=== PATIENT | female | born 1940 | race Caucasian/White ===

== ENCOUNTER 2018-01-27 18:34 | Emergency (ER) | payer MEDICARE ==
[~2018-01-27] VITALS: Ht 174 cm; Wt 72.0 kg
[~2018-01-27 18:34] MED LIST: AMLO10TA PO
[2018-01-27] MEDS ORDERED: INSU100V9 SQ (18:45)
[2018-01-27] MEDS ORDERED: CITA40TA22 PO (18:49)
[2018-01-27] MEDS ORDERED: LIRA0.6P2 SUBCUT (18:49)
[2018-01-27] MEDS ORDERED: MIRA50TA PO (18:49)
[2018-01-27] MEDS ORDERED: BRIM5DRO2 RIGHTEYE (18:49)
[2018-01-27] MEDS ORDERED: [UNRECOGNIZED DRUG - OTHER] PO (18:49)
[2018-01-27] MEDS ORDERED: DENO60DI IM (18:49)
[2018-01-27] MEDS ORDERED: LEVO100T PO (18:49)
[2018-01-27] MEDS ORDERED: DIPH1TAB PO (18:49)
[2018-01-27] MEDS ORDERED: COLE3.75 PO (18:49)
[2018-01-27] MEDS ORDERED: LOSA25TA96 PO (18:49)
[2018-01-27] MEDS ORDERED: ONDA4TAB9 SL (18:49)
[2018-01-27] MEDS ORDERED: ESTR0.6261 PO (18:49)
[2018-01-27] MEDS ORDERED: morphine 4 MG/ML inj SYRINge IM ONE (20:20)
[2018-01-27] MEDS ORDERED: HYDROcodone/acetaminophen 10/325mg tab PO ONE (20:20)
[2018-01-27 20:55] VITALS: BP 127/75
[2018-01-27] MEDS ORDERED: ondansetron 4mg rapidly disintigrating tab PO ONE (21:00)
[2018-01-27] MEDS ORDERED: HYDR-565 PO (21:40)
== END 2018-01-27 21:50 | disposition home or self-care (01) ==
LOC: ER 18:35
DX: S80.02XA Contusion of left knee, initial encounter (principal); I10 Essential (primary) hypertension; I25.2 Old myocardial infarction; J45.909 Unspecified asthma, uncomplicated; E11.9 Type 2 diabetes mellitus without complications; G89.29 Other chronic pain; Z98.890 Other specified postprocedural states; Z88.1 Allergy status to other antibiotic agents; Z88.8 Allergy status to other drugs, medicaments and biological substances; Z91.018 Allergy to other foods; Z79.4 Long term (current) use of insulin; Z79.899 Other long term (current) drug therapy; X37.1XXA Tornado, initial encounter; Y93.89 Activity, other specified; Y92.89 Other specified places as the place of occurrence of the external cause; Y99.8 Other external cause status
CPT/HCPCS: 73564; 96372; 99284; A6449; J2270

== ENCOUNTER 2018-04-11 13:10 | Inpatient (IN) | payer MEDICARE ==
[~2018-04-11] VITALS: Ht 172.7 cm; Wt 80.0 kg
[~2018-04-11 13:10] MED LIST changes: -AMLO10TA PO; +BRIM5DRO2 RIGHTEYE; +CITA40TA22 PO; +COLE3.75 PO; +DENO60DI IM; +DIPH1TAB PO; +ESTR0.6261 PO; +INSU100V9 SQ; +LEVO100T PO; +LIRA0.6P2 SUBCUT; +LOSA25TA96 PO; +MIRA50TA PO; +ONDA4TAB9 SL; +[UNRECOGNIZED DRUG - OTHER] PO
[2018-04-11 13:39] LABS: BASOPHILS % (AUTO) 0.1 % (0-1); EOSINOPHILS % (AUTO) 0 % (0-6); HEMATOCRIT 35.6 % (35.0-45.0); HEMOGLOBIN 12.1 g/dl (12.0-16.0); LYMPHOCYTES # (AUTO) 1.3 X10'3 (1.1-4.8); LYMPHOCYTES % (AUTO) 9.7 % (21-51); MEAN CORPUSCULAR HGB CONC 34.1 % (33.0-36.5); MEAN PLATELET VOLUME 8.2 FL (7.4-10.4); MONOCYTES # (AUTO) 0.5 X10'3 (0-0.9); NEUTROPHILS # (AUTO) 11.3 X10'3 (1.8-7.7); NEUTROPHILS % (AUTO) 86.2 % (42-75); PLATELET COUNT 316 X10'3 (140-440); RED BLOOD COUNT 4.05 X10'6 (4.20-5.60); RED CELL DISTRIBUTION WIDTH 14.6 % (11.5-14.5); WHITE BLOOD COUNT 13.1 X10'3 (4.5-11.0)
[2018-04-11 13:50] LABS: ALANINE AMINOTRANSFERASE 20 U/L (12-78); ALBUMIN/GLOBULIN RATIO 0.8 (1.1-1.5); ALKALINE PHOSPHATASE 82 IU/L (46-116); ANION GAP 12 (8-16); ASPARTATE AMINO TRANSFERASE 12 U/L (10-37); BILIRUBIN,TOTAL 0.2 MG/DL (0.1-1.0); BLOOD UREA NITROGEN 15 MG/DL (7-18); BUN/CREATININE RATIO 13.3 (6.6-38.0); CALCIUM 8.8 MG/DL (8.5-10.1); CHLORIDE 101 MMOL/L (99-107); CREATININE 1.13 MG/DL (0.40-0.90); GLUCOSE 262 MG/DL (70-104); PARTIAL THROMBOPLASTIN TIME 23 SECONDS (22-32); POTASSIUM 3.6 MMOL/L (3.5-5.1); PROTHROMBIN TIME 10.5 SECONDS (9.0-12.0); SODIUM 137 MMOL/L (135-145); TOTAL CARBON DIOXIDE 24.3 MMOL/L (24-32); TOTAL PROTEIN 6.7 G/DL (6.4-8.2); eGFR 47 ML/MIN
[2018-04-11 13:53] LABS: TROPONIN I < 0.04 NG/ML (0.0-0.05)
[2018-04-11] MEDS ORDERED: HYDROcodone/acetaminophen 5mg/325mg tablet PO ONE (14:05)
[2018-04-11] MEDS ORDERED: glucagon, human recombinant 1mg kit SUBCUT PRN (15:20)
[2018-04-11] MEDS ORDERED: MESSAGE TO PHARMACY PO ONE (15:20)
[2018-04-11] MEDS ORDERED: dextrose ORAL solution 15 GM/59 ML bottle PO PRN ×2 (15:20)
[2018-04-11] MEDS ORDERED: dextrose 50%-water 50ml dispensing syringe IV PRN ×2 (15:20)
[2018-04-11] MEDS ORDERED: ondansetron/PF 4mg/2ml inj IV PRN (15:20)
[2018-04-11] MEDS ORDERED: mag hydrox/Alum hydrox/simeth 30ml oral suspension PO PRN (15:20)
[2018-04-11] MEDS ORDERED: magnesium hydroxide 30ml (MOM) UD suspension PO PRN (15:20)
[2018-04-11] MEDS ORDERED: acetaminophen 325mg tablet PO PRN (15:20)
[2018-04-11 15:48] LABS: HEMOGLOBIN A1C 8.6 % (4.5-6.2)
[2018-04-11] MEDS ORDERED: BRIM10DR2 OP (15:52)
[2018-04-11] MEDS ORDERED: CHOL50004 PO (15:53)
[2018-04-11] MEDS: normal saline 1000ml 1,000 ML IV SCH (16:15)
[2018-04-11] MEDS: HYDROmorphone 1 mg/ml syringe IV PRN ×2 (16:15→21:05)
[2018-04-11 18:30] VITALS: BP 164/83
[2018-04-11] MEDS: insulin Lispro (HumaLOG) vial - multi-dose SQ SCH (21:51)
[2018-04-11] MEDS: insulin glargine (Lantus) pen - multi-dose SQ SCH (21:52)
[2018-04-11 22:00] VITALS: BP 129/57
[2018-04-12] MEDS: HYDROmorphone 1 mg/ml syringe IV PRN ×2 (02:51→09:17)
[2018-04-12] MEDS: normal saline 1000ml 1,000 ML IV SCH ×2 (05:34→14:40)
[2018-04-12 06:00] VITALS: BP 159/84
[2018-04-12 06:01] LABS: BASOPHILS % (AUTO) 0.4 % (0-1); EOSINOPHILS % (AUTO) 0.2 % (0-6); HEMATOCRIT 32.9 % (35.0-45.0); HEMOGLOBIN 11.5 g/dl (12.0-16.0); LYMPHOCYTES % (AUTO) 18.4 % (21-51); MEAN CORPUSCULAR HEMOGLOBIN 30.6 PG (27.0-31.0); MEAN CORPUSCULAR VOLUME 87.6 FL (78-98); MEAN PLATELET VOLUME 8.6 FL (7.4-10.4); MONOCYTES % (AUTO) 6.7 % (2-12); NEUTROPHILS % (AUTO) 74.3 % (42-75); PLATELET COUNT 257 X10'3 (140-440); RED BLOOD COUNT 3.76 X10'6 (4.20-5.60); RED CELL DISTRIBUTION WIDTH 14.7 % (11.5-14.5); WHITE BLOOD COUNT 9.2 X10'3 (4.5-11.0)
[2018-04-12 06:02] LABS: LYMPHOCYTES # (AUTO) 1.7 X10'3 (1.1-4.8); MONOCYTES # (AUTO) 0.6 X10'3 (0-0.9); NEUTROPHILS # (AUTO) 6.9 X10'3 (1.8-7.7)
[2018-04-12 06:14] LABS: ALANINE AMINOTRANSFERASE 17 U/L (12-78); ALBUMIN 2.8 G/DL (3.4-5.0); ALBUMIN/GLOBULIN RATIO 0.8 (1.1-1.5); ALKALINE PHOSPHATASE 78 IU/L (46-116); ANION GAP 11 (8-16); ASPARTATE AMINO TRANSFERASE 13 U/L (10-37); BILIRUBIN,TOTAL 0.2 MG/DL (0.1-1.0); BLOOD UREA NITROGEN 16 MG/DL (7-18); BUN/CREATININE RATIO 17.4 (6.6-38.0); CALCIUM 8.9 MG/DL (8.5-10.1); CHLORIDE 103 MMOL/L (99-107); CREATININE 0.92 MG/DL (0.40-0.90); GLUCOSE 249 MG/DL (70-104); POTASSIUM 3.9 MMOL/L (3.5-5.1); SODIUM 139 MMOL/L (135-145); TOTAL CARBON DIOXIDE 25.2 MMOL/L (24-32); TOTAL PROTEIN 6.2 G/DL (6.4-8.2); eGFR 59 ML/MIN
[2018-04-12] MEDS ORDERED: TIMOLOL RIGHTEYE SCH (08:00)
[2018-04-12] MEDS ORDERED: BRIMONIDINE TARTRATE RIGHTEYE SCH (08:00)
[2018-04-12] MEDS: insulin Lispro (HumaLOG) vial - multi-dose SQ SCH ×3 (09:16→18:57)
[2018-04-12 10:00] VITALS: BP 172/79
[2018-04-12] MEDS ORDERED: pneumococcal 23-VAL P-sac vacc 25 mcg/0.5ml vial IMVAC ONE (10:00)
[2018-04-12] MEDS ORDERED: COLESEVELAM HCL 3.75 GM PO SCH (10:30)
[2018-04-12] MEDS: timolol 0.5% ophthalmic solution 5ml bottle RIGHTEYE SCH ×2 (10:33→20:00)
[2018-04-12] MEDS: brimonidine 0.2% 5 ML ophthalmic drops RIGHTEYE SCH ×2 (10:34→20:00)
[2018-04-12] MEDS: losartan 25mg tablet PO SCH (10:55)
[2018-04-12] MEDS: levoTHYROXINE 100mcg tablet PO SCH (10:57)
[2018-04-12] MEDS: citalopram 20mg tablet PO SCH (10:58)
[2018-04-12] MEDS: HYDROcodone/acetaminophen 5mg/325mg tablet PO PRN ×2 (14:32→23:47)
[2018-04-12] MEDS ORDERED: LORazepam 2 mg/ml vial IV PRN (15:00)
[2018-04-12 18:16] VITALS: BP 157/82
[2018-04-12] MEDS ORDERED: COLESEVELAM HCL 625 MG PO SCH (19:25)
[2018-04-12] MEDS: insulin glargine (Lantus) pen - multi-dose SQ SCH (21:43)
[2018-04-12] MEDS: COLESEVELAM HCL 625 MG PO SCH (21:44)
[2018-04-12 22:00] VITALS: BP 148/68
[2018-04-13 02:00] VITALS: BP 164/87
[2018-04-13 06:23] LABS: BASOPHILS % (AUTO) 0.3 % (0-1); EOSINOPHILS # (AUTO) 0.1 X10'3 (0-0.9); EOSINOPHILS % (AUTO) 1.7 % (0-6); HEMOGLOBIN 12.4 g/dl (12.0-16.0); LYMPHOCYTES # (AUTO) 1.9 X10'3 (1.1-4.8); LYMPHOCYTES % (AUTO) 27.1 % (21-51); MEAN CORPUSCULAR HEMOGLOBIN 29.3 PG (27.0-31.0); MEAN CORPUSCULAR HGB CONC 33.4 % (33.0-36.5); MEAN CORPUSCULAR VOLUME 87.6 FL (78-98); MEAN PLATELET VOLUME 7.9 FL (7.4-10.4); MONOCYTES # (AUTO) 0.5 X10'3 (0-0.9); NEUTROPHILS # (AUTO) 4.3 X10'3 (1.8-7.7); NEUTROPHILS % (AUTO) 62.9 % (42-75); PLATELET COUNT 269 X10'3 (140-440); RED BLOOD COUNT 4.23 X10'6 (4.20-5.60); RED CELL DISTRIBUTION WIDTH 15.8 % (11.5-14.5); WHITE BLOOD COUNT 6.8 X10'3 (4.5-11.0)
[2018-04-13 06:44] LABS: ALANINE AMINOTRANSFERASE 18 U/L (12-78); ALBUMIN 2.7 G/DL (3.4-5.0); ALBUMIN/GLOBULIN RATIO 0.8 (1.1-1.5); ALKALINE PHOSPHATASE 74 IU/L (46-116); ANION GAP 10 (8-16); ASPARTATE AMINO TRANSFERASE 14 U/L (10-37); BILIRUBIN,TOTAL 0.2 MG/DL (0.1-1.0); BLOOD UREA NITROGEN 16 MG/DL (7-18); BUN/CREATININE RATIO 22.9 (6.6-38.0); CALCIUM 8.3 MG/DL (8.5-10.1); CHLORIDE 105 MMOL/L (99-107); CHOL/HDL RATIO 2.7 (0.00-4.99); CHOLESTEROL 128 MG/DL (0-200); GLUCOSE 225 MG/DL (70-104); HDL CHOLESTEROL 47 MG/DL (35-60); LDL CHOLESTEROL 33 MG/DL (50-100); POTASSIUM 3.7 MMOL/L (3.5-5.1); SODIUM 140 MMOL/L (135-145); TOTAL PROTEIN 6.1 G/DL (6.4-8.2); TRIGLYCERIDES 280 MG/DL (20-135); eGFR 81 ML/MIN
[2018-04-13] MEDS: levoTHYROXINE 100mcg tablet PO SCH (07:48)
[2018-04-13] MEDS: citalopram 20mg tablet PO SCH (07:48)
[2018-04-13] MEDS: HYDROcodone/acetaminophen 10/325mg tab PO PRN ×2 (07:49→11:50)
[2018-04-13] MEDS: losartan 25mg tablet PO SCH (07:49)
[2018-04-13] MEDS: timolol 0.5% ophthalmic solution 5ml bottle RIGHTEYE SCH (08:00)
[2018-04-13] MEDS: brimonidine 0.2% 5 ML ophthalmic drops RIGHTEYE SCH (08:00)
[2018-04-13] MEDS ORDERED: aspirin 81mg tab.chew PO SCH (08:00)
[2018-04-13 08:08] VITALS: BP 172/81
[2018-04-13] MEDS: insulin Lispro (HumaLOG) vial - multi-dose SQ SCH (08:41)
[2018-04-13] MEDS: COLESEVELAM HCL 625 MG PO SCH (08:48)
[2018-04-13 10:40] VITALS: BP 156/93
[2018-04-13] MEDS: normal saline 1000ml 1,000 ML IV SCH (11:46)
[2018-04-13] MEDS ORDERED: HYDR-3972 PO (14:35)
== END 2018-04-13 15:51 | disposition home or self-care (01) | DRG 683 ==
LOC: ER 13:10 → ED HOLD 15:16 → ORTHO 4S 17:35
PROVIDERS: ADMIT Internal Medicine; ATTEND Family Medicine
PROC: 4A10X4Z Monitoring of Central Nervous Electrical Activity, External Approach (ICD-10-PCS; principal; 2018-04-12)
PROC: 3E0234Z Introduction of Serum, Toxoid and Vaccine into Muscle, Percutaneous Approach (ICD-10-PCS; 2018-04-12)
DX: N17.9 Acute kidney failure, unspecified (principal); S22.089A Unspecified fracture of T11-T12 vertebra, initial encounter for closed fracture; S22.079A Unspecified fracture of T9-T10 vertebra, initial encounter for closed fracture; I95.1 Orthostatic hypotension; E03.9 Hypothyroidism, unspecified; E11.9 Type 2 diabetes mellitus without complications; E78.1 Pure hyperglyceridemia; E86.0 Dehydration; I10 Essential (primary) hypertension; S09.90XA Unspecified injury of head, initial encounter; I25.10 Atherosclerotic heart disease of native coronary artery without angina pectoris; F32.9 Major depressive disorder, single episode, unspecified; W18.39XA Other fall on same level, initial encounter; G89.29 Other chronic pain; R79.89 Other specified abnormal findings of blood chemistry; J45.909 Unspecified asthma, uncomplicated; N95.1 Menopausal and female climacteric states; Z23 Encounter for immunization; I25.2 Old myocardial infarction; Z95.5 Presence of coronary angioplasty implant and graft; Z88.8 Allergy status to other drugs, medicaments and biological substances; Z79.899 Other long term (current) drug therapy; Z79.4 Long term (current) use of insulin; Z87.891 Personal history of nicotine dependence; Y93.89 Activity, other specified; Y99.8 Other external cause status
CPT/HCPCS: 36415; 70450; 70544; 70547; 70551; 71045; 72125; 72128; 72131; 80053; 80061; 82948; 83036; 84484; 85025; 85610; 85730; 87070; 90732; 93005; 93306; 93880; 95816; 97116; 97161; 97760; 99285; G0378; J1170; J1815; J2060; J7030

== ENCOUNTER 2018-08-17 10:15 | Emergency (ER) | payer MEDICARE ==
[~2018-08-17] VITALS: Ht 172.7 cm; Wt 75.0 kg
[~2018-08-17 10:15] MED LIST changes: +CHOL50004 PO; -ESTR0.6261 PO; +HYDR-3972 PO
[2018-08-17] MEDS ORDERED: normal saline 1000ML IV soln IVB ONE (10:50)
--- NOTE | 2018-08-17 11:03 | NUR ---
gave apple juice and jello for bg
--- NOTE | 2018-08-17 11:23 | NUR ---
assumed care of pt from Yolanda CHOWDHURY, pt is resting quietly on gurney, receiving liter bolus of NS
[2018-08-17 11:37] LABS: BASOPHILS % (AUTO) 0.4 % (0-1); EOSINOPHILS % (AUTO) 0.5 % (0-6); HEMATOCRIT 35.6 % (35.0-45.0); HEMOGLOBIN 11.7 g/dl (12.0-16.0); LYMPHOCYTES # (AUTO) 1.2 X10'3 (1.1-4.8); LYMPHOCYTES % (AUTO) 15.9 % (21-51); MEAN CORPUSCULAR HEMOGLOBIN 29.5 PG (27.0-31.0); MEAN CORPUSCULAR HGB CONC 32.9 g/dL (33.0-36.5); MEAN CORPUSCULAR VOLUME 89.6 FL (78-98); MEAN PLATELET VOLUME 8.1 FL (7.4-10.4); MONOCYTES # (AUTO) 0.6 X10'3 (0-0.9); MONOCYTES % (AUTO) 7.7 % (2-12); NEUTROPHILS # (AUTO) 5.9 X10'3 (1.8-7.7); NEUTROPHILS % (AUTO) 75.5 % (42-75); PLATELET COUNT 289 X10'3 (140-440); RED BLOOD COUNT 3.98 X10'6 (4.20-5.60); WHITE BLOOD COUNT 7.8 X10'3 (4.5-11.0)
--- NOTE | 2018-08-17 11:42 | NUR ---
in and out cath done with sterile technique, 200ml of yellow cloudy urine out, sample sent to lab
[2018-08-17 11:56] LABS: ALANINE AMINOTRANSFERASE 20 U/L (12-78); ALBUMIN 2.7 G/DL (3.4-5.0); ALBUMIN/GLOBULIN RATIO 0.8 (1.1-1.5); ALKALINE PHOSPHATASE 71 IU/L (46-116); ANION GAP 10 (8-16); ASPARTATE AMINO TRANSFERASE 15 U/L (10-37); BILIRUBIN,TOTAL 0.3 MG/DL (0.1-1.0); BLOOD UREA NITROGEN 16 MG/DL (7-18); CALCIUM 9.7 MG/DL (8.5-10.1); CHLORIDE 107 MMOL/L (99-107); GLUCOSE 81 MG/DL (70-104); LIPASE 75 U/L (73-393); SODIUM 143 MMOL/L (135-145); TOTAL PROTEIN 6.3 G/DL (6.4-8.2); eGFR 54 ML/MIN
[2018-08-17 11:58] LABS: POTASSIUM 2.9 MMOL/L (3.5-5.1)
[2018-08-17] MEDS ORDERED: potassium Cl 20 mEq SR tablet PO STA (11:59)
[2018-08-17 12:16] LABS: CLARITY,URINE CLOUDY (Clear); COLOR,URINE YELLOW (Yellow); GLUCOSE, URINE NEGATIVE (Neg); KETONES,URINE 15 mg/dl (Neg); LEUKOCYTE ESTERASE ,URINE LARGE (Neg); NITRITES, URINE POSITIVE (Neg); OCCULT BLOOD,URINE TRACE-INTACT (Neg); PH,URINE 6.5 (4.8-8.0); PROTEIN,URINE NEGATIVE (Neg); UROBILINOGEN,URINE 0.2 E.U/dL (0.2-1.0)
[2018-08-17 12:17] LABS: UA COLLECTION TYPE NON-SPECIFIED
[2018-08-17 12:26] LABS: SQUAMOUS EPITHELIAL CELL,UR FEW /LPF (FEW); WBC CLUMPS,URINE MANY /HPF (NEGATIVE)
[2018-08-17 12:27] LABS: BACTERIA,URINE 4+ /HPF (Neg); WBC,URINE TNTC /HPF (0-4)
[2018-08-17 12:29] LABS: TRANSITIONAL EPI CELLS,URINE FEW /HPF
--- NOTE | 2018-08-17 12:30 | NUR ---
gave pt sandwich, milk and yogurt, junaid well, no n/v
[2018-08-17] MEDS ORDERED: CEPH500C5 PO (13:14)
[2018-08-17] MEDS ORDERED: CefTRIAXone 2gm/D5W 50ml 50 ML IV ONE (13:15)
[2018-08-17 13:18] LABS: ANISOCYTOSIS 1+; PLATELET ESTIMATE NORMAL
--- NOTE | 2018-08-17 14:30 | NUR ---
assisted pt to restroom, pt able to transfer self from gurney to wheelchair with min assist,
[2018-08-17 14:53] VITALS: BP 153/96
== END 2018-08-17 14:54 | disposition home or self-care (01) ==
LOC: ER 10:16
DX: N39.0 Urinary tract infection, site not specified (principal); E86.0 Dehydration; E87.6 Hypokalemia; R19.7 Diarrhea, unspecified; E11.9 Type 2 diabetes mellitus without complications; I10 Essential (primary) hypertension; I25.2 Old myocardial infarction; G89.29 Other chronic pain; J45.909 Unspecified asthma, uncomplicated; Z79.4 Long term (current) use of insulin; Z88.1 Allergy status to other antibiotic agents; Z88.8 Allergy status to other drugs, medicaments and biological substances; Z79.2 Long term (current) use of antibiotics; Z79.899 Other long term (current) drug therapy; Z91.018 Allergy to other foods; Z98.890 Other specified postprocedural states; Z87.19 Personal history of other diseases of the digestive system
CPT/HCPCS: 36415; 80053; 81001; 82948; 83690; 85025; 87077; 87088; 87186; 96361; 96365; 99284; J0696; J7030; P9612

== ENCOUNTER 2018-08-17 20:46 | Inpatient (IN) | payer MEDICARE ==
[~2018-08-17] VITALS: Ht 172.7 cm; Wt 75.0 kg
[~2018-08-17 20:46] MED LIST changes: +CEPH500C5 PO
[2018-08-17] MEDS ORDERED: normal saline 1000ML IV soln IVB ONE (20:50)
[2018-08-17] MEDS ORDERED: temazepam 15mg capsule PO PRN (21:00)
[2018-08-17 21:10] LABS: WHITE BLOOD COUNT 7.6 X10'3 (4.5-11.0)
[2018-08-17 21:11] LABS: BASOPHILS % (AUTO) 0.6 % (0-1); EOSINOPHILS % (AUTO) 0.6 % (0-6); HEMATOCRIT 33.9 % (35.0-45.0); HEMOGLOBIN 11.1 g/dl (12.0-16.0); LYMPHOCYTES # (AUTO) 1.6 X10'3 (1.1-4.8); LYMPHOCYTES % (AUTO) 21.5 % (21-51); MEAN CORPUSCULAR HEMOGLOBIN 29.8 PG (27.0-31.0); MEAN CORPUSCULAR HGB CONC 32.8 g/dL (33.0-36.5); MEAN CORPUSCULAR VOLUME 90.9 FL (78-98); MONOCYTES # (AUTO) 0.5 X10'3 (0-0.9); MONOCYTES % (AUTO) 6.8 % (2-12); NEUTROPHILS # (AUTO) 5.3 X10'3 (1.8-7.7); NEUTROPHILS % (AUTO) 70.5 % (42-75); PLATELET COUNT 283 X10'3 (140-440); RED BLOOD COUNT 3.73 X10'6 (4.20-5.60); RED CELL DISTRIBUTION WIDTH 16.6 % (11.5-14.5)
[2018-08-17 21:18] LABS: ALANINE AMINOTRANSFERASE 15 U/L (12-78); ALBUMIN 2.4 G/DL (3.4-5.0); ALBUMIN/GLOBULIN RATIO 0.7 (1.1-1.5); ALKALINE PHOSPHATASE 71 IU/L (46-116); ANION GAP 6 (8-16); ASPARTATE AMINO TRANSFERASE 9 U/L (10-37); BILIRUBIN,TOTAL 0.2 MG/DL (0.1-1.0); BLOOD UREA NITROGEN 16 MG/DL (7-18); BUN/CREATININE RATIO 14.4 (6.6-38.0); CALCIUM 9.8 MG/DL (8.5-10.1); CHLORIDE 105 MMOL/L (99-107); CREATININE 1.11 MG/DL (0.40-0.90); GLUCOSE 298 MG/DL (70-104); POTASSIUM 3.9 MMOL/L (3.5-5.1); SODIUM 137 MMOL/L (135-145); TOTAL CARBON DIOXIDE 25.6 MMOL/L (24-32); eGFR 48 ML/MIN
[2018-08-17] MEDS ORDERED: potassium Cl 40MEQ/NS 500ml 500 ML IV PRN ×2 (22:30)
[2018-08-17] MEDS ORDERED: potassium Cl 20 mEq SR tablet PO PRN ×2 (22:30)
[2018-08-17] MEDS ORDERED: ondansetron/PF 4mg/2ml inj IV PRN (22:30)
[2018-08-17] MEDS ORDERED: magnesium Cl slow-release 64mg tablet PO PRN (22:30)
[2018-08-17] MEDS ORDERED: acetaminophen 325mg tablet PO PRN ×2 (22:30)
[2018-08-17] MEDS ORDERED: magnesium 4gm in 100ml NS 100 ML IV PRN (22:30)
[2018-08-17] MEDS ORDERED: magnesium hydroxide 30ml (MOM) UD suspension PO PRN (22:30)
[2018-08-17] MEDS ORDERED: mag hydrox/Alum hydrox/simeth 30ml oral suspension PO PRN (22:30)
[2018-08-17] MEDS ORDERED: magnesium 2GM in 50ml NS 50 ML IV PRN (22:30)
[2018-08-17 22:39] LABS: CLARITY,URINE CLOUDY (Clear); COLOR,URINE YELLOW (Yellow); GLUCOSE, URINE 250 mg/dl (Neg); KETONES,URINE NEGATIVE (Neg); LEUKOCYTE ESTERASE ,URINE LARGE (Neg); NITRITES, URINE NEGATIVE (Neg); OCCULT BLOOD,URINE SMALL (Neg); PH,URINE 7.5 (4.8-8.0); PROTEIN,URINE NEGATIVE (Neg); UROBILINOGEN,URINE 0.2 E.U/dL (0.2-1.0)
[2018-08-17 22:40] LABS: UA COLLECTION TYPE FOLEY CATH
[2018-08-17] MEDS: normal saline 1000ml 1,000 ML IV SCH (22:41)
[2018-08-17 22:50] LABS: WBC,URINE TNTC /HPF (0-4)
[2018-08-17 22:51] LABS: BACTERIA,URINE FEW /HPF (Neg); MUCUS STRANDS NONE SEEN /LPF (Neg); SQUAMOUS EPITHELIAL CELL,UR MODERATE /LPF (FEW); TRANSITIONAL EPI CELLS,URINE FEW /HPF; WBC CLUMPS,URINE MANY /HPF (NEGATIVE)
[2018-08-17] MEDS: CefTRIAXone/D5W-Rocephin 1gm 50 ML IV SCH (23:19)
[2018-08-17] MEDS ORDERED: dextrose 50%-water 50ml dispensing syringe IV PRN ×2 (23:30)
[2018-08-17] MEDS ORDERED: dextrose ORAL solution 15 GM/59 ML bottle PO PRN ×2 (23:30)
[2018-08-17] MEDS ORDERED: glucagon, human recombinant 1mg kit SUBCUT PRN (23:30)
[2018-08-17] MEDS ORDERED: MESSAGE TO PHARMACY PO ONE (23:30)
[2018-08-17 23:50] LABS: HEMOGLOBIN A1C 8.3 % (4.5-6.2)
--- NOTE | 2018-08-18 00:04 | NUR ---
[facility] AFTER HOURS PUBLIC NURSE CONTACTED, THEY WERE INFORMED OF POTENTIAL MEASLES PATIENT. THEY WILL CONTACT THE ED PHONE NUMBER FOR ANY FURTHER QUESTIONS.
[2018-08-18 00:24] VITALS: BP 173/95
[2018-08-18] MEDS: heparin, porcine 5000 units/ml vial SQ SCH ×4 (00:46→23:07)
--- NOTE | 2018-08-18 02:41 | NUR ---
PATIENT CONFUSED, PULLING OFF EKG AND SCDS, TOOK SCDS OFF FOR SAFETY PURPOSES, BED ALARM IS ON
[2018-08-18 06:00] VITALS: BP 168/88
--- NOTE | 2018-08-18 06:05 | NUR ---
Problems reprioritized. Patient report given, questions answered & plan of care reviewed with Saniya Smith RN.
[2018-08-18 06:07] LABS: HEMATOCRIT 32.7 % (35.0-45.0); HEMOGLOBIN 10.8 g/dl (12.0-16.0); MEAN CORPUSCULAR HEMOGLOBIN 29.7 PG (27.0-31.0); MEAN CORPUSCULAR HGB CONC 33.1 g/dL (33.0-36.5); MEAN CORPUSCULAR VOLUME 89.9 FL (78-98); MEAN PLATELET VOLUME 8.3 FL (7.4-10.4); PLATELET COUNT 270 X10'3 (140-440); RED BLOOD COUNT 3.63 X10'6 (4.20-5.60); RED CELL DISTRIBUTION WIDTH 16.8 % (11.5-14.5); WHITE BLOOD COUNT 7.1 X10'3 (4.5-11.0)
--- NOTE | 2018-08-18 06:23 | NUR ---
Problems reprioritized. Patient report given, questions answered & plan of care reviewed with TRENTON Del Valle.
[2018-08-18 06:49] LABS: ALBUMIN 2.3 G/DL (3.4-5.0); ANION GAP 9 (8-16); BLOOD UREA NITROGEN 11 MG/DL (7-18); BUN/CREATININE RATIO 13.4 (6.6-38.0); CALCIUM 8.9 MG/DL (8.5-10.1); CHLORIDE 110 MMOL/L (99-107); CHOL/HDL RATIO 4.3 (0.00-4.99); CHOLESTEROL 185 MG/DL (0-200); CREATININE 0.82 MG/DL (0.40-0.90); GLUCOSE 173 MG/DL (70-104); HDL CHOLESTEROL 43 MG/DL (35-60); LDL CHOLESTEROL 98 MG/DL (50-100); PHOSPHORUS 2.8 MG/DL (2.3-4.5); POTASSIUM 3.5 MMOL/L (3.5-5.1); SODIUM 142 MMOL/L (135-145); TOTAL CARBON DIOXIDE 22.7 MMOL/L (24-32); TRIGLYCERIDES 236 MG/DL (20-135); eGFR 68 ML/MIN
--- NOTE | 2018-08-18 07:30 | NUR ---
Paged Dr Virgen PAGER ID: [phone] MESSAGE: [id number] Chioma Quintanilla. Critical magnesium 1.0. On protocol, replacing now. [place] [id number]
[2018-08-18] MEDS: levoTHYROXINE 100mcg tablet PO SCH (07:44)
[2018-08-18] MEDS: citalopram 20mg tablet PO SCH (07:44)
[2018-08-18] MEDS: losartan 25mg tablet PO SCH (07:44)
[2018-08-18] MEDS: brimonidine 0.2% 5 ML ophthalmic drops RIGHTEYE SCH ×2 (07:45→20:07)
[2018-08-18] MEDS: timolol 0.5% ophthalmic solution 5ml bottle RIGHTEYE SCH ×2 (07:45→20:06)
[2018-08-18] MEDS: COLESEVELAM HCL 3.75 GM PO SCH (08:00)
[2018-08-18] MEDS: K and/or MAG REPLACEMENT MC SCH (08:00)
[2018-08-18] MEDS ORDERED: INSULIN GLARGINE HUM REC ANLOG 16 UNIT SQ SCH (08:00)
[2018-08-18] MEDS: MIRABEGRON 50 MG PO SCH (08:00)
[2018-08-18 10:00] VITALS: BP 137/69
--- NOTE | 2018-08-18 11:18 | NUR ---
DM consult: Pt with A1c 8.3. Per physical assessment pt confused and A/O x 3 with possible Alzheimer dementia per H&P; DM ed not appropriate at this time. Pt previously admit with A1c 8.6 and given written DM ed with referral to outpatient DM class and RD contact information on 04/12/18. Pt admit with encephalopathy of unknown etiology currently on a CHO controlled diet with documented PO intake 100% meeting nutrient needs. LBM 08/17. No edema or wounds. Will continue to follow. Recommendations: 1) Continue with CHO controlled diet 2) Monitor need for additional DM ed 3) Wt per rx Addendum: 08/18/18 at [address] Amended: Links added.
[2018-08-18] MEDS: normal saline 1000ml 1,000 ML IV SCH ×2 (11:20→18:30)
[2018-08-18] MEDS: insulin Lispro (HumaLOG) vial - multi-dose SQ SCH ×2 (13:38→19:07)
[2018-08-18] MEDS: HYDROcodone/acetaminophen 5mg/325mg tablet PO PRN ×2 (15:33→20:43)
[2018-08-18 17:00] VITALS: BP 143/61
--- NOTE | 2018-08-18 18:30 | NUR ---
Patient in room ORTHO 4020. I have received report from TRENTON Del Valle and had the opportunity to ask questions and assume patient care. at bedside at this time.
[2018-08-18] MEDS: lactobacillus rhamnosus 10,000 MMU CELLS/CAPSULE PO SCH (20:05)
[2018-08-18] MEDS ORDERED: insulin glargine (Lantus) pen - multi-dose SQ SCH (21:00)
[2018-08-18 22:00] VITALS: BP 143/83
--- NOTE | 2018-08-18 22:51 | NUR ---
reviewed and edited SRN assessment.
[2018-08-18] MEDS: CefTRIAXone/D5W-Rocephin 1gm 50 ML IV SCH (23:07)
[2018-08-19] MEDS: normal saline 1000ml 1,000 ML IV SCH (01:50)
[2018-08-19] MEDS: HYDROcodone/acetaminophen 5mg/325mg tablet PO PRN (05:31)
[2018-08-19 06:00] VITALS: BP 159/78
--- NOTE | 2018-08-19 06:06 | NUR ---
Problems reprioritized. Patient report given, questions answered & plan of care reviewed with TRENTON LOPEZ.
--- NOTE | 2018-08-19 06:10 | NUR ---
Patient in room ORTHO 4020. I have received report from Saniya Smith RN and had the opportunity to ask questions and assume patient care.
[2018-08-19 06:15] LABS: HEMATOCRIT 33.2 % (35.0-45.0); MEAN CORPUSCULAR HEMOGLOBIN 30.1 PG (27.0-31.0); MEAN CORPUSCULAR HGB CONC 33.2 g/dL (33.0-36.5); MEAN CORPUSCULAR VOLUME 90.6 FL (78-98); MEAN PLATELET VOLUME 8.4 FL (7.4-10.4); PLATELET COUNT 274 X10'3 (140-440); RED BLOOD COUNT 3.67 X10'6 (4.20-5.60); WHITE BLOOD COUNT 8.2 X10'3 (4.5-11.0)
[2018-08-19 06:21] LABS: ALBUMIN 2.3 G/DL (3.4-5.0); ANION GAP 8 (8-16); BLOOD UREA NITROGEN 8 MG/DL (7-18); CALCIUM 8.1 MG/DL (8.5-10.1); CHLORIDE 108 MMOL/L (99-107); GLUCOSE 166 MG/DL (70-104); MAGNESIUM 1.8 MG/DL (1.5-2.4); PHOSPHORUS 1.9 MG/DL (2.3-4.5); POTASSIUM 3.3 MMOL/L (3.5-5.1); SODIUM 141 MMOL/L (135-145); eGFR 70 ML/MIN
[2018-08-19] MEDS: MIRABEGRON 50 MG PO SCH (08:00)
[2018-08-19] MEDS: COLESEVELAM HCL 3.75 GM PO SCH (08:00)
[2018-08-19] MEDS: insulin Lispro (HumaLOG) vial - multi-dose SQ SCH ×2 (08:39→13:32)
[2018-08-19] MEDS: lactobacillus rhamnosus 10,000 MMU CELLS/CAPSULE PO SCH (08:43)
[2018-08-19] MEDS: levoTHYROXINE 100mcg tablet PO SCH (08:43)
[2018-08-19] MEDS: losartan 25mg tablet PO SCH (08:43)
[2018-08-19] MEDS: citalopram 20mg tablet PO SCH (08:43)
[2018-08-19] MEDS: heparin, porcine 5000 units/ml vial SQ SCH (08:43)
[2018-08-19] MEDS: timolol 0.5% ophthalmic solution 5ml bottle RIGHTEYE SCH (08:44)
[2018-08-19] MEDS: brimonidine 0.2% 5 ML ophthalmic drops RIGHTEYE SCH (08:44)
[2018-08-19] MEDS: K and/or MAG REPLACEMENT MC SCH (08:52)
--- NOTE | 2018-08-19 15:01 | NUR ---
Patient stable for discharge home today with . Discharge instructions given. IV out and questions answered
== END 2018-08-19 14:20 | disposition home or self-care (01) | DRG 71 ==
LOC: ER 20:46 → ORTHO 4S 08-18 00:10 → CMPBEDREQ 08-18 00:31
PROVIDERS: ADMIT Family Medicine; ATTEND Internal Medicine
DX: G93.49 Other encephalopathy (principal); N39.0 Urinary tract infection, site not specified; G30.9 Alzheimer's disease, unspecified; F02.80 Dementia in other diseases classified elsewhere, unspecified severity, without behavioral disturbance, psychotic disturbance, mood disturbance, and anxiety; I25.10 Atherosclerotic heart disease of native coronary artery without angina pectoris; G14 Postpolio syndrome; E78.5 Hyperlipidemia, unspecified; E11.22 Type 2 diabetes mellitus with diabetic chronic kidney disease; N18.9 Chronic kidney disease, unspecified; I12.9 Hypertensive chronic kidney disease with stage 1 through stage 4 chronic kidney disease, or unspecified chronic kidney disease; J45.909 Unspecified asthma, uncomplicated; E87.6 Hypokalemia; G89.29 Other chronic pain; Z96.641 Presence of right artificial hip joint; Z66 Do not resuscitate; I25.2 Old myocardial infarction; Z95.5 Presence of coronary angioplasty implant and graft; Z90.710 Acquired absence of both cervix and uterus; Z90.49 Acquired absence of other specified parts of digestive tract; Z88.1 Allergy status to other antibiotic agents; Z88.8 Allergy status to other drugs, medicaments and biological substances; Z91.018 Allergy to other foods; Z87.891 Personal history of nicotine dependence
CPT/HCPCS: 36415; 70450; 70544; 70551; 71045; 80048; 80053; 80061; 81001; 82948; 83036; 83605; 83735; 84100; 84443; 85025; 85027; 87040; 87070; 87088; 93005; 93306; 93880; 96361; 96365; 99285; G0378; J0696; J1644; J1815; J3475; J7030

== ENCOUNTER 2019-03-12 21:02 | Inpatient (IN) | payer MEDICARE ==
[~2019-03-12] VITALS: Ht 165.1 cm; Wt 87.0 kg
[~2019-03-12 21:02] MED LIST changes: -CEPH500C5 PO; -DIPH1TAB PO; -HYDR-3972 PO; -MIRA50TA PO; +atropine 0.1mg/ml 10ml syringe ONE; +etomidate 2mg/ml inj. ONE; +rocuronium 10mg/ml inj IV ONE
--- NOTE | 2019-03-12 21:06 | NUR ---
EMS REC'D CALL AT 2023 - PT ARRIVED TO ER APPROX 2100 - SHE WAS SHOCKED BY EMS/FIRE RESCUE, THEN HAD A RATE IN THE 40'S - WAS BEING PACED AT 90MA AT A RATE OF 80 UPON ARRIVAL IN ER. PT NOT PACED AND WAS MAINTAINING RATE IN THE 70'S WITH STRONG RADIAL PULSE. ACCU CHECK 312 PER EMS.
[2019-03-12] MEDS ORDERED: midazolam 100mg in NS 100ml 100 ML IV ONE ×2 (21:15→21:25)
[2019-03-12] MEDS ORDERED: FENTANYL-0.9 % NACL/PF 100 ML IV ONE ×2 (21:15→21:30)
[2019-03-12] MEDS ORDERED: normal saline 1000ML IV soln IVB ONE (21:35)
[2019-03-12] MEDS ORDERED: CefTRIAXone 2gm/D5W 50ml 50 ML IV ONE (21:35)
--- NOTE | 2019-03-12 21:36 | NUR ---
PT HAS BEEN INTUBATED WITH 20 ETOMIDATE AND 70 OF ROCURONIUM, SIZE 7.5 TUBE USING MAC 4 BLADE - PLACED 23 AT THE LIP AND CENTRAL LINE HAS BEEN PLACED. PT TOLERATED PROCEDURES WELL WITHOUT INCIDENT. 2 PIV'S HAVE BEEN ESTABLISHED WELL.
[2019-03-12 21:41] LABS: ABG BASE EXCESS -6.4 mmol/L (-2.0-3.0); ABG HCO3 19.8 mmol/L (22.0-26.0); ABG OXYGEN SATURATION 94.1 % (95-98); ABG PH (T) 7.292 (7.350-7.450); ABG PO2 (T) 81.5 mmHg (83-108); FCOHb 0.4 % (0.5-1.5); FO2Hb 93.7 % (94-100); MINUTE VOLUME 6 L/min; PEEP 5 cm H2O; RESPIRATORY RATE 16 b/min; RESPIRATORY RATE (OBSERVED) 16 b/min; TIDAL VOLUME 400 mL; TOTAL HEMOGLOBIN 12.1 G/dl (12.0-16.0)
--- NOTE | 2019-03-12 21:41 | NUR ---
VERSED STARTED AT 2MG/HR AND FENTANYL AT 25MCG/HR - SOFT WRIST RESTRAINTS IN PLACE. CENTRAL LINE AND TUBE PLACEMENT CONFIRMED BY MD DEAN. PT TO CT SCAN
[2019-03-12 21:51] LABS: PARTIAL THROMBOPLASTIN TIME 23 SECONDS (22-32)
[2019-03-12 21:54] LABS: BASOPHILS # (AUTO) 0.1 X10'3 (0-0.2); BASOPHILS % (AUTO) 0.8 % (0-1); EOSINOPHILS # (AUTO) 0.2 X10'3 (0-0.9); EOSINOPHILS % (AUTO) 1.6 % (0-6); HEMATOCRIT 40.5 % (35.0-45.0); LYMPHOCYTES # (AUTO) 5.4 X10'3 (1.1-4.8); LYMPHOCYTES % (AUTO) 47.5 % (21-51); MEAN CORPUSCULAR HEMOGLOBIN 29.9 PG (27.0-31.0); MEAN CORPUSCULAR HGB CONC 32.1 g/dL (33.0-36.5); MEAN CORPUSCULAR VOLUME 93.1 FL (78-98); MEAN PLATELET VOLUME 8.3 FL (7.4-10.4); MONOCYTES # (AUTO) 0.8 X10'3 (0-0.9); MONOCYTES % (AUTO) 6.7 % (2-12); NEUTROPHILS # (AUTO) 4.9 X10'3 (1.8-7.7); NEUTROPHILS % (AUTO) 43.4 % (42-75); PLATELET COUNT 363 X10'3 (140-440); RED BLOOD COUNT 4.36 X10'6 (4.20-5.60); RED CELL DISTRIBUTION WIDTH 16.8 % (11.5-14.5); WHITE BLOOD COUNT 11.3 X10'3 (4.5-11.0)
[2019-03-12 21:56] LABS: ALANINE AMINOTRANSFERASE 42 U/L (12-78); ALBUMIN 2.7 G/DL (3.4-5.0); ALBUMIN/GLOBULIN RATIO 0.7 (1.1-1.5); ALKALINE PHOSPHATASE 87 IU/L (46-116); ANION GAP 14 (8-16); ASPARTATE AMINO TRANSFERASE 78 U/L (10-37); BILIRUBIN,TOTAL 0.2 MG/DL (0.1-1.0); BLOOD UREA NITROGEN 16 MG/DL (7-18); BUN/CREATININE RATIO 13.1 (6.6-38.0); CALCIUM 8.6 MG/DL (8.5-10.1); CHLORIDE 102 MMOL/L (99-107); CREATININE 1.22 MG/DL (0.40-0.90); GLUCOSE 343 MG/DL (70-104); POTASSIUM 3.1 MMOL/L (3.5-5.1); SODIUM 139 MMOL/L (135-145); TOTAL CARBON DIOXIDE 22.8 MMOL/L (24-32); TOTAL PROTEIN 6.6 G/DL (6.4-8.2); eGFR 43 ML/MIN
[2019-03-12 22:02] LABS: MAGNESIUM 1.9 MG/DL (1.5-2.4)
--- NOTE | 2019-03-12 22:07 | NUR ---
PT WENT TO CT SCAN AND NOW BACK TO ROOM 5 - PT SWITCHED BACK TO BEDSIDE MONITORING EQUIPMENT.
[2019-03-12] MEDS ORDERED: LEVO150T PO (22:17)
[2019-03-12] MEDS ORDERED: DENO60DI (22:17)
[2019-03-12] MEDS ORDERED: INSU100C10 SQ (22:17)
[2019-03-12] MEDS ORDERED: SERT-153 PO (22:17)
[2019-03-12] MEDS ORDERED: INSU100V9 SQ (22:17)
[2019-03-12] MEDS ORDERED: LOSA25TA96 PO (22:17)
[2019-03-12] MEDS ORDERED: BRIM5DRO2 RIGHTEYE (22:17)
[2019-03-12] MEDS ORDERED: DIPH-186 PO (22:17)
[2019-03-12] MEDS ORDERED: MIRA50TA PO (22:17)
[2019-03-12] MEDS ORDERED: ESTR0.6261 PO (22:17)
[2019-03-12] MEDS ORDERED: LIRA0.6P SQ (22:17)
[2019-03-12] MEDS ORDERED: ASPI-1265 PO (22:17)
[2019-03-12] MEDS ORDERED: CISatracurium besylate inj. 200 MG in normal saline 250ml IV soln 180 ML IV PRN (22:33)
[2019-03-12] MEDS ORDERED: morphine 2 MG/ML inj. syringe IV PRN (22:35)
[2019-03-12] MEDS ORDERED: acetaminophen 650mg rectal suppository RC PRN (22:35)
[2019-03-12] MEDS ORDERED: potassium Cl 20 mEq SR tablet PO PRN ×2 (22:35)
[2019-03-12] MEDS ORDERED: Neutra Phos packet PO PRN (22:35)
[2019-03-12] MEDS ORDERED: sodium phosphate inj. 30 MMOL in dextrose 5%-water 250 ML IV PRN (22:35)
[2019-03-12] MEDS ORDERED: ondansetron/PF 4mg/2ml inj IV PRN (22:35)
[2019-03-12] MEDS ORDERED: morphine 4 MG/ML inj SYRINge IV PRN (22:35)
[2019-03-12] MEDS ORDERED: CISatracurium **Bolus** 2 mg/ml inj IV PRN (22:35)
[2019-03-12] MEDS ORDERED: potassium Cl 20mEq/100mL bag 100 ML IV PRN (22:35)
[2019-03-12] MEDS ORDERED: acetaminophen 325mg tablet PO PRN ×2 (22:35)
[2019-03-12] MEDS ORDERED: magnesium 2GM in 50ml NS 50 ML IV PRN (22:35)
[2019-03-12] MEDS ORDERED: ipratropium/albuterol 3ml nebule NEB PRN (22:35)
[2019-03-12] MEDS ORDERED: magnesium 4gm in 100ml NS 100 ML IV PRN (22:35)
[2019-03-12] MEDS ORDERED: heparin 10,000 units/1 ML INJ IV ONE (22:35)
[2019-03-12] MEDS ORDERED: magnesium Cl slow-release 64mg tablet PO PRN (22:35)
--- NOTE | 2019-03-12 22:47 | NUR ---
VERBAL ORDER FROM DR DEAN TO INCREASE VERSED TO 5MG/HR, INCREASE FENTNYL TO 100MCG/HR.
[2019-03-12 23:21] LABS: CLARITY,URINE CLEAR (Clear); COLOR,URINE YELLOW (Yellow); GLUCOSE, URINE 100 mg/dl (Neg); KETONES,URINE NEGATIVE (Neg); LEUKOCYTE ESTERASE ,URINE NEGATIVE (Neg); NITRITES, URINE NEGATIVE (Neg); OCCULT BLOOD,URINE NEGATIVE (Neg); PROTEIN,URINE TRACE mg/dl (Neg); UROBILINOGEN,URINE 0.2 E.U/dL (0.2-1.0)
[2019-03-12] MEDS ORDERED: CISatracurium besylate inj. 100 MG in normal saline 100ml IV soln 90 ML IV PRN (23:26)
[2019-03-12 23:32] LABS: UA COLLECTION TYPE FOLEY CATH
[2019-03-12 23:35] LABS: SQUAMOUS EPITHELIAL CELL,UR NONE SEEN /LPF (FEW)
[2019-03-12 23:37] LABS: BACTERIA,URINE NONE SEEN /HPF (Neg); RBC,URINE NONE SEEN /HPF (0-2); WBC,URINE NONE SEEN /HPF (0-4)
[2019-03-13] VITALS (23 sets, daily range): BP systolic 116–197; BP diastolic 38–93
--- NOTE | 2019-03-13 00:10 | NUR ---
Patient arrived to unit and is in room CICU 2012. I have received report from Jong CHOWDHURY and had the opportunity to ask questions and assume patient care. Patient arrived via gurney, transferred to hospital bed with max assist. Patient placed on ventilator, cooling measures initiated per MD orders. Patient not responsive and has abnormal posturing with extremities in extended position. Pupils reactive with R pupil more sluggish than L. Will continue to monitor patient closely for shivering and changes.
[2019-03-13] MEDS: heparin 25,000 UNIT/250ml bag 250 ML IV SCH (00:45)
--- NOTE | 2019-03-13 01:23 | NUR ---
Three different rings sent home with in bag labeled with patient's name.
--- NOTE | 2019-03-13 02:43 | NUR ---
Patient reportedly had seizure-like activity per cupola charger. States patient clamped jaw and was biting tube, and whole body began shaking. chemist pharmaceutical reports activity lasted approximately one minute, was bolused with versed, and seizure activity stopped. Rosendo Marte was notified by cupola charger, new orders received for ativan PRN seizures.
[2019-03-13] MEDS ORDERED: LORazepam 2 mg/ml vial IV ONE (02:45)
[2019-03-13] MEDS ORDERED: LORazepam 2 mg/ml vial ONE (02:46)
[2019-03-13] MEDS: normal saline 1000ml 1,000 ML IV SCH ×3 (03:14→18:33)
[2019-03-13 03:17] LABS: BASOPHILS % (AUTO) 0.2 % (0-1); EOSINOPHILS % (AUTO) 0.3 % (0-6); HEMATOCRIT 39.4 % (35.0-45.0); HEMOGLOBIN 12.6 g/dl (12.0-16.0); LYMPHOCYTES # (AUTO) 1.3 X10'3 (1.1-4.8); LYMPHOCYTES % (AUTO) 11.3 % (21-51); MEAN CORPUSCULAR HEMOGLOBIN 30.1 PG (27.0-31.0); MEAN CORPUSCULAR HGB CONC 31.9 g/dL (33.0-36.5); MEAN CORPUSCULAR VOLUME 94.3 FL (78-98); MEAN PLATELET VOLUME 8.1 FL (7.4-10.4); MONOCYTES # (AUTO) 0.6 X10'3 (0-0.9); MONOCYTES % (AUTO) 5.6 % (2-12); NEUTROPHILS # (AUTO) 9.5 X10'3 (1.8-7.7); NEUTROPHILS % (AUTO) 82.6 % (42-75); PLATELET COUNT 350 X10'3 (140-440); RED BLOOD COUNT 4.18 X10'6 (4.20-5.60); RED CELL DISTRIBUTION WIDTH 16.7 % (11.5-14.5); WHITE BLOOD COUNT 11.5 X10'3 (4.5-11.0)
[2019-03-13] MEDS: K, MAG and/or Phos replacement - Verify level? MC SCH ×2 (03:20→08:00)
[2019-03-13] MEDS ORDERED: insulin regular, human 100 UNIT in normal saline 100ml IV soln 99 ML IV SCH ×2 (03:25)
[2019-03-13] MEDS ORDERED: dextrose 50%-water 50ml dispensing syringe IV PRN (03:25)
--- NOTE | 2019-03-13 03:30 | NUR ---
Patient beginning to shiver. Sedation increased per protocol, bear hugger applied to reduce shivering. Will continue to monitor patient closely.
[2019-03-13 03:35] LABS: PARTIAL THROMBOPLASTIN TIME 74 SECONDS (22-32)
[2019-03-13 03:37] LABS: ALANINE AMINOTRANSFERASE 50 U/L (12-78); ALBUMIN 2.8 G/DL (3.4-5.0); ALBUMIN/GLOBULIN RATIO 0.7 (1.1-1.5); ALKALINE PHOSPHATASE 86 IU/L (46-116); ANION GAP 12 (8-16); ASPARTATE AMINO TRANSFERASE 57 U/L (10-37); BILIRUBIN,TOTAL 0.3 MG/DL (0.1-1.0); BLOOD UREA NITROGEN 19 MG/DL (7-18); BUN/CREATININE RATIO 15.8 (6.6-38.0); CALCIUM 8.2 MG/DL (8.5-10.1); CHLORIDE 103 MMOL/L (99-107); MAGNESIUM 1.7 MG/DL (1.5-2.4); PHOSPHORUS 3.8 MG/DL (2.3-4.5); SODIUM 139 MMOL/L (135-145); TOTAL CARBON DIOXIDE 23.6 MMOL/L (24-32); TOTAL PROTEIN 6.7 G/DL (6.4-8.2); eGFR 44 ML/MIN
[2019-03-13 03:43] LABS: GLUCOSE 503 MG/DL (70-104)
[2019-03-13 04:10] LABS: ABG BASE EXCESS -8.2 mmol/L (-2.0-3.0); ABG HCO3 19.6 mmol/L (22.0-26.0); ABG OXYGEN SATURATION 97.5 % (95-98); ABG PCO2 (T) 42.3 mmHg (35.0-45.0); ABG PH (T) 7.266 (7.350-7.450); ALLEN'S TEST Positive; FCOHb 0.5 % (0.5-1.5); FMetHb 0.1 % (0.3-1.12); FO2Hb 96.9 % (94-100); MINUTE VOLUME 11 L/min; PATIENT TEMPERATURE 33.6; PEEP 5 cm H2O; RESPIRATORY RATE 16 b/min; RESPIRATORY RATE (OBSERVED) 20 b/min; TIDAL VOLUME 400 mL
[2019-03-13] MEDS: insulin regular, human 100 UNIT in normal saline 100ml IV soln 99 ML IV SCH ×2 (05:20)
--- NOTE | 2019-03-13 05:37 | NUR ---
Patient beginning to shiver again. Sedation increased, heat setting on bear hugger increased. Will continue to monitor patient closely for shivering, nimbex ordered if increasing sedation ineffective.
--- NOTE | 2019-03-13 06:30 | NUR ---
Received patient report from TRENTON Navarro.
--- NOTE | 2019-03-13 06:32 | NUR ---
Problems reprioritized. Patient report given, questions answered & plan of care reviewed with Jana CHOWDHURY.
[2019-03-13] MEDS: FENTANYL-0.9 % NACL/PF 100 ML IV PRN ×2 (07:07→20:24)
[2019-03-13] MEDS: pantoprazole 40 MG vial IV SCH (07:07)
[2019-03-13] MEDS: midazolam 100mg in NS 100ml 100 ML IV PRN ×2 (07:08→20:23)
[2019-03-13 10:27] LABS: ALBUMIN 2.7 G/DL (3.4-5.0); ANION GAP 7 (8-16); BLOOD UREA NITROGEN 18 MG/DL (7-18); BUN/CREATININE RATIO 17.6 (6.6-38.0); CALCIUM 8.4 MG/DL (8.5-10.1); CHLORIDE 109 MMOL/L (99-107); CREATININE 1.02 MG/DL (0.40-0.90); GLUCOSE 225 MG/DL (70-104); MAGNESIUM 1.8 MG/DL (1.5-2.4); POTASSIUM 3.7 MMOL/L (3.5-5.1); SODIUM 143 MMOL/L (135-145); TOTAL CARBON DIOXIDE 26.9 MMOL/L (24-32); eGFR 53 ML/MIN
[2019-03-13] MEDS: heparin 10,000 units/1 ML INJ IV PRN (10:34)
--- NOTE | 2019-03-13 13:23 | NUR ---
PRESSURE ULCER EDUCATION: DEFINITION: A pressure ulcer is an area of skin that breaks down when you stay in one position too long. The constant pressure against the skin reduces the blood flow to that area and the affected tissue dies. CAUSES: "Being bedridden or in a wheelchair "Fragile skin "Having a chronic condition, such as diabetes or vascular disease "Inability to move certain parts of your body without assistance "Older age "Incontinence of urine or stool SYMPTOMS: "A reddened area that DOES NOT turn white when pressed on - this can be the beginning of a pressure ulcer "A blister, deep sore or a crater - these can be advanced pressure ulcers FIRST AID: "Relieve the pressure on this area "Keep the area clean and dry "Call your primary doctor if you see any of the above symptoms "DO NOT massage the area "DO NOT use a donut shaped or ring shaped pillow- these actually interfere with the blood flow and cause complications PREVENTION: "Check for pressure ulcers everyday "Change position at least every two hours to relieve pressure "Use items that help relieve pressure- pillows, sheepskin, foam padding, and powders. "Keep skin clean and dry "Eat healthy well balanced meals "Exercise daily IF YOU SEE ANY OF THESE SYMPTOMS WHILE IN THE HOSPITAL - TELL YOUR NURSE IMMEDIATELY. IF YOU SEE ANY OF THESE SYMPTOMS WHILE AT HOME OR HAVE ANY QUESTIONS OR CONCERNS ABOUT PRESSURE ULCERS - CALL YOUR PRIMARY DOCTOR IMMEDIATELY. Addendum: 03/13/19 at 1326 by Cindy Beard RN Amended: Links added.
[2019-03-13] MEDS ORDERED: DULO60CA65 PO (17:05)
[2019-03-13] MEDS ORDERED: ONDA4TAB11 PO (17:05)
[2019-03-13] MEDS ORDERED: OXYB10TA2 PO (17:05)
[2019-03-13 17:21] LABS: ALBUMIN 2.6 G/DL (3.4-5.0); ANION GAP 12 (8-16); BLOOD UREA NITROGEN 17 MG/DL (7-18); BUN/CREATININE RATIO 22.4 (6.6-38.0); CHLORIDE 109 MMOL/L (99-107); CKMB RELATIVE INDEX 3.2 RATIO (0-2.5); CREATINE KINASE 243 U/L (26-192); CREATININE 0.76 MG/DL (0.40-0.90); GLUCOSE 167 MG/DL (70-104); MAGNESIUM 1.6 MG/DL (1.5-2.4); SODIUM 144 MMOL/L (135-145); TOTAL CARBON DIOXIDE 22.6 MMOL/L (24-32); TROPONIN I 0.33 NG/ML (0.0-0.05); eGFR 74 ML/MIN
[2019-03-13 17:23] LABS: POTASSIUM 2.6 MMOL/L (3.5-5.1)
--- NOTE | 2019-03-13 17:24 | NUR ---
Patient is intubated and sedated, on hypothermic protocol after s/p code at home. No TF at this time. If to receive TF when rewarmed and prolonged intubation recs for TF below. Recommend: 1. IF to receive TF after rewarmed and if prolonged intubation recommend Vital High Protein at 70 ml/hr 2. IF to receive TF, recommend daily weights and prealbumin q tuesday and 3. When extubated, recommend BSS prior to advancement Addendum: 03/13/19 at [address] Amended: Links added.
[2019-03-13] MEDS: potassium Cl 20mEq/100mL bag 100 ML IV PRN ×4 (17:27→21:01)
[2019-03-13] MEDS ORDERED: FEXO-25 PO (18:24)
--- NOTE | 2019-03-13 18:41 | NUR ---
Patient in room CICU 2012. I have received report from Jana CHOWDHURY and had the opportunity to ask questions and assume patient care. Patient intubated, paralyzed, and sedated on fentanyl, versed, and nimbex. No vasoactive drugs infusing at this time. BIS attached to patient, 4/4 twitches present at 7mA with train of 4 and nimbex at 1mcg/kg/hr. Phase 2 of hypothermia protocol in progress via kaylen pelletier. Will continue to monitor patient closely.
--- NOTE | 2019-03-13 18:42 | NUR ---
Report given to TRENTON Ivey
[2019-03-13 21:36] LABS: ABG BASE EXCESS -3.4 mmol/L (-2.0-3.0); ABG HCO3 21.6 mmol/L (22.0-26.0); ABG OXYGEN SATURATION 96.1 % (95-98); ABG PH (T) 7.427 (7.350-7.450); ABG PO2 (T) 63.9 mmHg (83-108); ALLEN'S TEST Positive; FCOHb 0.3 % (0.5-1.5); FMetHb 0.3 % (0.3-1.12); FO2Hb 95.5 % (94-100); MINUTE VOLUME 7 L/min; PATIENT TEMPERATURE 32.6; PEEP 5 cm H2O; RESPIRATORY RATE 16 b/min; RESPIRATORY RATE (OBSERVED) 16 b/min; TIDAL VOLUME 400 mL; TOTAL HEMOGLOBIN 12.5 G/dl (12.0-16.0)
[2019-03-13 22:53] LABS: ALBUMIN 2.3 G/DL (3.4-5.0); ANION GAP 8 (8-16); BLOOD UREA NITROGEN 15 MG/DL (7-18); CALCIUM 7.8 MG/DL (8.5-10.1); CHLORIDE 112 MMOL/L (99-107); CKMB RELATIVE INDEX 2.8 RATIO (0-2.5); CREATINE KINASE 309 U/L (26-192); CREATININE 0.75 MG/DL (0.40-0.90); GLUCOSE 108 MG/DL (70-104); MAGNESIUM 1.5 MG/DL (1.5-2.4); PHOSPHORUS 2.2 MG/DL (2.3-4.5); POTASSIUM 4.5 MMOL/L (3.5-5.1); SODIUM 144 MMOL/L (135-145); TOTAL CARBON DIOXIDE 24.3 MMOL/L (24-32); TROPONIN I 0.38 NG/ML (0.0-0.05); eGFR 75 ML/MIN
[2019-03-14] VITALS (24 sets, daily range): BP systolic 121–174; BP diastolic 44–99
[2019-03-14] MEDS: heparin 10,000 units/1 ML INJ IV PRN ×2 (01:04→22:20)
[2019-03-14 03:49] LABS: BASOPHILS % (AUTO) 0.2 % (0-1); EOSINOPHILS # (AUTO) 0.2 X10'3 (0-0.9); HEMATOCRIT 34.3 % (35.0-45.0); HEMOGLOBIN 11.3 g/dl (12.0-16.0); LYMPHOCYTES % (AUTO) 11.7 % (21-51); MEAN CORPUSCULAR HEMOGLOBIN 30.5 PG (27.0-31.0); MEAN CORPUSCULAR HGB CONC 32.8 g/dL (33.0-36.5); MEAN CORPUSCULAR VOLUME 92.8 FL (78-98); MEAN PLATELET VOLUME 7.9 FL (7.4-10.4); MONOCYTES # (AUTO) 0.3 X10'3 (0-0.9); MONOCYTES % (AUTO) 3.1 % (2-12); NEUTROPHILS # (AUTO) 7.3 X10'3 (1.8-7.7); PLATELET COUNT 262 X10'3 (140-440); RED CELL DISTRIBUTION WIDTH 16.3 % (11.5-14.5); WHITE BLOOD COUNT 8.8 X10'3 (4.5-11.0)
[2019-03-14 03:50] LABS: ABG BASE EXCESS -5.4 mmol/L (-2.0-3.0); ABG HCO3 19.8 mmol/L (22.0-26.0); ABG OXYGEN SATURATION 95.7 % (95-98); ABG PCO2 (T) 30.9 mmHg (35.0-45.0); ABG PH (T) 7.404 (7.350-7.450); ABG PO2 (T) 59.6 mmHg (83-108); ALLEN'S TEST Positive; FCOHb 0.1 % (0.5-1.5); FMetHb 0.3 % (0.3-1.12); FO2Hb 95.3 % (94-100); MINUTE VOLUME 7 L/min; PATIENT TEMPERATURE 32.6; PEEP 5 cm H2O; RESPIRATORY RATE 16 b/min; RESPIRATORY RATE (OBSERVED) 16 b/min; TIDAL VOLUME 400 mL; TOTAL HEMOGLOBIN 12.2 G/dl (12.0-16.0)
[2019-03-14 04:11] LABS: ALANINE AMINOTRANSFERASE 38 U/L (12-78); ALBUMIN 2.2 G/DL (3.4-5.0); ALBUMIN/GLOBULIN RATIO 0.7 (1.1-1.5); ALKALINE PHOSPHATASE 78 IU/L (46-116); ANION GAP 9 (8-16); ASPARTATE AMINO TRANSFERASE 33 U/L (10-37); BILIRUBIN,TOTAL 0.2 MG/DL (0.1-1.0); BLOOD UREA NITROGEN 14 MG/DL (7-18); BUN/CREATININE RATIO 21.9 (6.6-38.0); CALCIUM 7.9 MG/DL (8.5-10.1); CHLORIDE 112 MMOL/L (99-107); CKMB RELATIVE INDEX 2.9 RATIO (0-2.5); CREATINE KINASE 280 U/L (26-192); CREATININE 0.64 MG/DL (0.40-0.90); GLUCOSE 140 MG/DL (70-104); MAGNESIUM 1.6 MG/DL (1.5-2.4); PHOSPHORUS 2.2 MG/DL (2.3-4.5); POTASSIUM 3.7 MMOL/L (3.5-5.1); SODIUM 143 MMOL/L (135-145); TOTAL PROTEIN 5.5 G/DL (6.4-8.2); TROPONIN I 0.32 NG/ML (0.0-0.05); eGFR 90 ML/MIN
[2019-03-14] MEDS: normal saline 1000ml 1,000 ML IV SCH ×2 (04:19→13:27)
[2019-03-14] MEDS: insulin regular, human 100 UNIT in normal saline 100ml IV soln 99 ML IV SCH ×2 (05:20)
--- NOTE | 2019-03-14 05:39 | NUR ---
Re-warming phase initiated per protocol.
[2019-03-14] MEDS: heparin 25,000 UNIT/250ml bag 250 ML IV SCH (05:40)
--- NOTE | 2019-03-14 06:25 | NUR ---
Problems reprioritized. Patient report given, questions answered & plan of care reviewed with Justine CHOWDHURY.
--- NOTE | 2019-03-14 06:30 | NUR ---
Patient in room CICU 2013. I have received report from TRENTON Ivey and had the opportunity to ask questions and assume patient care.
[2019-03-14] MEDS: pantoprazole 40 MG vial IV SCH (07:38)
[2019-03-14] MEDS: K, MAG and/or Phos replacement - Verify level? MC SCH (08:00)
[2019-03-14 09:50] LABS: ABG BASE EXCESS -5.1 mmol/L (-2.0-3.0); ABG HCO3 19.5 mmol/L (22.0-26.0); ABG OXYGEN SATURATION 93.7 % (95-98); ABG PCO2 (T) 29.6 mmHg (35.0-45.0); ABG PH (T) 7.421 (7.350-7.450); ABG PO2 (T) 53.5 mmHg (83-108); ALLEN'S TEST Positive; FCOHb 0.5 % (0.5-1.5); FMetHb 0.1 % (0.3-1.12); FO2Hb 93.1 % (94-100); MINUTE VOLUME 7 L/min; PATIENT TEMPERATURE 33.3; PEEP 5 cm H2O; RESPIRATORY RATE 16 b/min; RESPIRATORY RATE (OBSERVED) 16 b/min; TIDAL VOLUME 400 mL; TOTAL HEMOGLOBIN 12.2 G/dl (12.0-16.0)
[2019-03-14 09:55] LABS: ALBUMIN 2.1 G/DL (3.4-5.0); ANION GAP 5 (8-16); BLOOD UREA NITROGEN 13 MG/DL (7-18); BUN/CREATININE RATIO 21.3 (6.6-38.0); CALCIUM 7.7 MG/DL (8.5-10.1); CHLORIDE 114 MMOL/L (99-107); CREATININE 0.61 MG/DL (0.40-0.90); GLUCOSE 153 MG/DL (70-104); MAGNESIUM 1.5 MG/DL (1.5-2.4); PHOSPHORUS 1.9 MG/DL (2.3-4.5); POTASSIUM 3.5 MMOL/L (3.5-5.1); SODIUM 143 MMOL/L (135-145); eGFR > 90 ML/MIN
[2019-03-14] MEDS: FENTANYL-0.9 % NACL/PF 100 ML IV PRN (10:20)
[2019-03-14] MEDS ORDERED: acetaminophen 325mg tablet OGT PRN ×2 (11:18)
[2019-03-14] MEDS ORDERED: Neutra Phos packet OGT PRN (11:19)
[2019-03-14] MEDS ORDERED: potassium Cl 20 mEq SR tablet OGT PRN ×2 (11:20)
[2019-03-14] MEDS ORDERED: magnesium 2GM in 50ml NS 50 ML IV ONE (13:20)
[2019-03-14] MEDS: midazolam 100mg in NS 100ml 100 ML IV PRN (13:55)
[2019-03-14] MEDS: sodium phosphate inj. 15 MMOL in dextrose 5%-water 150 ML IV PRN (13:58)
--- NOTE | 2019-03-14 14:00 | NUR ---
Pt appeared to be in second degree heart block, having episodes of bradycardia. EKG ordered and confirmed mobitz type II. Dr. Harris awareMurray Harris contacted Dr. Romero, pt's production internship.
[2019-03-14 15:10] LABS: CKMB RELATIVE INDEX 2.8 RATIO (0-2.5); TROPONIN I 0.15 NG/ML (0.0-0.05)
[2019-03-14 16:27] LABS: ALBUMIN 2.1 G/DL (3.4-5.0); ANION GAP 10 (8-16); BLOOD UREA NITROGEN 13 MG/DL (7-18); BUN/CREATININE RATIO 16.3 (6.6-38.0); CALCIUM 7.7 MG/DL (8.5-10.1); CHLORIDE 112 MMOL/L (99-107); GLUCOSE 145 MG/DL (70-104); MAGNESIUM 2.6 MG/DL (1.5-2.4); PHOSPHORUS 3.8 MG/DL (2.3-4.5); POTASSIUM 3.9 MMOL/L (3.5-5.1); SODIUM 144 MMOL/L (135-145); TOTAL CARBON DIOXIDE 21.7 MMOL/L (24-32); eGFR 70 ML/MIN
[2019-03-14 16:41] LABS: ABG BASE EXCESS -6.7 mmol/L (-2.0-3.0); ABG HCO3 20.1 mmol/L (22.0-26.0); ABG OXYGEN SATURATION 91.1 % (95-98); ABG PCO2 (T) 42.2 mmHg (35.0-45.0); ABG PH (T) 7.288 (7.350-7.450); ABG PO2 (T) 59.7 mmHg (83-108); ALLEN'S TEST Positive; FCOHb 0.3 % (0.5-1.5); FMetHb 0.1 % (0.3-1.12); FO2Hb 90.7 % (94-100); MINUTE VOLUME 7 L/min; PATIENT TEMPERATURE 35.5; PEEP 5 cm H2O; RESPIRATORY RATE 16 b/min; RESPIRATORY RATE (OBSERVED) 17 b/min; TIDAL VOLUME 400 mL
[2019-03-14] MEDS: sodium bicarbonate (8.4%) inj. 50 MEQ in sodium chloride 0.45% 1,000 ML IV SCH (17:35)
[2019-03-14 18:06] LABS: TOTAL PROTEIN,URINE RANDOM 105.8 MG/DL
--- NOTE | 2019-03-14 18:14 | NUR ---
Problems reprioritized. Patient report given, questions answered & plan of care reviewed with TRENTON Ivey.
--- NOTE | 2019-03-14 18:16 | NUR ---
Patient in room CICU 2012. I have received report from Justine CHOWDHURY and had the opportunity to ask questions and assume patient care. Patient intubated, paralyzed, and sedated on nimbex, fentanyl, and versed. Re-warming in progress at this time, patient at 36 degrees celcius with target at 36.8 degrees. Will continue to monitor patient closely.
--- NOTE | 2019-03-14 20:55 | NUR ---
Patient re-warming phase complete, currently at 36.9 degree celcius. Now maintaining normothermia with goal of 36.8 per protocol. Nimbex turned off, patient over-breathing vent and slight spontaneous movement of hands noted. Will continue to monitor patient and to wean sedation as indicated to assess neurologic status.
[2019-03-14 21:21] LABS: ABG BASE EXCESS -5.4 mmol/L (-2.0-3.0); ABG HCO3 21.2 mmol/L (22.0-26.0); ABG OXYGEN SATURATION 91.4 % (95-98); ABG PCO2 (T) 44.8 mmHg (35.0-45.0); ABG PH (T) 7.291 (7.350-7.450); ABG PO2 (T) 63.1 mmHg (83-108); ALLEN'S TEST Positive; FCOHb 0.3 % (0.5-1.5); FMetHb 0.1 % (0.3-1.12); MINUTE VOLUME 9 L/min; PATIENT TEMPERATURE 36.7; PEEP 5 cm H2O; RESPIRATORY RATE 16 b/min; RESPIRATORY RATE (OBSERVED) 21 b/min; TIDAL VOLUME 400 mL
[2019-03-14 21:53] LABS: ALBUMIN 2.2 G/DL (3.4-5.0); ANION GAP 8 (8-16); BLOOD UREA NITROGEN 13 MG/DL (7-18); CHLORIDE 112 MMOL/L (99-107); CREATININE 0.81 MG/DL (0.40-0.90); GLUCOSE 134 MG/DL (70-104); MAGNESIUM 2.2 MG/DL (1.5-2.4); PHOSPHORUS 3.8 MG/DL (2.3-4.5); POTASSIUM 4.1 MMOL/L (3.5-5.1); SODIUM 144 MMOL/L (135-145); TOTAL CARBON DIOXIDE 24.5 MMOL/L (24-32); eGFR 69 ML/MIN
[2019-03-15] VITALS (24 sets, daily range): BP systolic 109–199; BP diastolic 47–108
[2019-03-15] MEDS: FENTANYL-0.9 % NACL/PF 100 ML IV PRN (01:50)
[2019-03-15] MEDS: sodium bicarbonate (8.4%) inj. 50 MEQ in sodium chloride 0.45% 1,000 ML IV SCH ×3 (01:55→09:58)
[2019-03-15 03:40] LABS: ABG BASE EXCESS -5.1 mmol/L (-2.0-3.0); ABG HCO3 21.1 mmol/L (22.0-26.0); ABG OXYGEN SATURATION 95.2 % (95-98); ABG PCO2 (T) 41.7 mmHg (35.0-45.0); ABG PH (T) 7.317 (7.350-7.450); ABG PO2 (T) 76.1 mmHg (83-108); ALLEN'S TEST Positive; FCOHb 0.3 % (0.5-1.5); FMetHb 0.1 % (0.3-1.12); FO2Hb 94.8 % (94-100); MINUTE VOLUME 8 L/min; PEEP 5 cm H2O; RESPIRATORY RATE 18 b/min; RESPIRATORY RATE (OBSERVED) 19 b/min; TIDAL VOLUME 400 mL; TOTAL HEMOGLOBIN 12.4 G/dl (12.0-16.0)
[2019-03-15 04:30] LABS: BASOPHILS % (AUTO) 0.4 % (0-1); EOSINOPHILS # (AUTO) 0.1 X10'3 (0-0.9); EOSINOPHILS % (AUTO) 0.9 % (0-6); HEMATOCRIT 34.3 % (35.0-45.0); HEMOGLOBIN 11.3 g/dl (12.0-16.0); LYMPHOCYTES # (AUTO) 0.9 X10'3 (1.1-4.8); LYMPHOCYTES % (AUTO) 10.1 % (21-51); MEAN CORPUSCULAR HEMOGLOBIN 30.5 PG (27.0-31.0); MEAN CORPUSCULAR HGB CONC 32.9 g/dL (33.0-36.5); MEAN CORPUSCULAR VOLUME 92.6 FL (78-98); MEAN PLATELET VOLUME 8.1 FL (7.4-10.4); MONOCYTES # (AUTO) 0.3 X10'3 (0-0.9); NEUTROPHILS # (AUTO) 7.9 X10'3 (1.8-7.7); NEUTROPHILS % (AUTO) 85.6 % (42-75); PLATELET COUNT 275 X10'3 (140-440); RED BLOOD COUNT 3.71 X10'6 (4.20-5.60); RED CELL DISTRIBUTION WIDTH 16.8 % (11.5-14.5); WHITE BLOOD COUNT 9.2 X10'3 (4.5-11.0)
[2019-03-15 04:43] LABS: ALANINE AMINOTRANSFERASE 32 U/L (12-78); ALBUMIN/GLOBULIN RATIO 0.6 (1.1-1.5); ALKALINE PHOSPHATASE 91 IU/L (46-116); ANION GAP 6 (8-16); ASPARTATE AMINO TRANSFERASE 25 U/L (10-37); BILIRUBIN,TOTAL 0.2 MG/DL (0.1-1.0); BLOOD UREA NITROGEN 12 MG/DL (7-18); BUN/CREATININE RATIO 16.4 (6.6-38.0); CALCIUM 7.8 MG/DL (8.5-10.1); CHLORIDE 111 MMOL/L (99-107); CREATININE 0.73 MG/DL (0.40-0.90); GLUCOSE 136 MG/DL (70-104); PHOSPHORUS 2.8 MG/DL (2.3-4.5); SODIUM 142 MMOL/L (135-145); TOTAL PROTEIN 5.5 G/DL (6.4-8.2); eGFR 77 ML/MIN
[2019-03-15] MEDS: insulin regular, human 100 UNIT in normal saline 100ml IV soln 99 ML IV SCH ×2 (05:20)
--- NOTE | 2019-03-15 06:14 | NUR ---
Problems reprioritized. Patient report given, questions answered & plan of care reviewed with Justine CHOWDHURY.
--- NOTE | 2019-03-15 06:54 | NUR ---
Patient in room CICU 2013. I have received report from Olive CHOWDHURY and had the opportunity to ask questions and assume patient care.
[2019-03-15] MEDS: K, MAG and/or Phos replacement - Verify level? MC SCH (07:00)
[2019-03-15] MEDS: pantoprazole 40 MG vial IV SCH (08:13)
[2019-03-15] MEDS: heparin 25,000 UNIT/250ml bag 250 ML IV SCH (09:57)
[2019-03-15 10:42] LABS: ANION GAP 8 (8-16); BLOOD UREA NITROGEN 11 MG/DL (7-18); BUN/CREATININE RATIO 14.5 (6.6-38.0); CALCIUM 7.9 MG/DL (8.5-10.1); CHLORIDE 109 MMOL/L (99-107); CREATININE 0.76 MG/DL (0.40-0.90); GLUCOSE 149 MG/DL (70-104); MAGNESIUM 1.8 MG/DL (1.5-2.4); PHOSPHORUS 2.7 MG/DL (2.3-4.5); POTASSIUM 3.9 MMOL/L (3.5-5.1); SODIUM 142 MMOL/L (135-145); TOTAL CARBON DIOXIDE 24.7 MMOL/L (24-32); eGFR 74 ML/MIN
--- NOTE | 2019-03-15 11:30 | NUR ---
Sedation turned off at 0657 this AM. BP has been increasing with SBP 150s-180s. MD aware and okay with high BP for cerebral perfusion.
--- NOTE | 2019-03-15 14:58 | NUR ---
Tube feeding consult. Patient is intubated and sedated, rewarmed after cardiac arrest. Tube feeding starting today with 100 ml water flush q 4 per MD. Recommend: 1. recommend Vital High Protein at 70 ml/hr to provide: 1680 ml total volume, 126 g protein, 1361 ml water. 2. Additional water flush 100 ml q 4 hours 3. Daily weights, prealbumin q Tuesday 4. When extubated, recommend BSS prior to advancement Addendum: 03/15/19 at [address] Amended: Links added.
[2019-03-15 15:33] LABS: HEMOGLOBIN A1C 8.1 % (4.5-6.2)
[2019-03-15] MEDS: labetalol 20mg/4ml (5mg/ml) syringe IV PRN ×2 (16:27→20:15)
--- NOTE | 2019-03-15 17:30 | NUR ---
w Addendum: 03/15/19 at 1828 by Karla Arshad RN Problems reprioritized. Patient report given, questions answered & plan of care reviewed with Clary CHOWDHURY.
--- NOTE | 2019-03-15 18:26 | NUR ---
Problems reprioritized. Patient report given, questions answered & plan of care reviewed with TRENTON Means.
--- NOTE | 2019-03-15 18:34 | NUR ---
Patient in room CICU 2013. I have received report from SHANELL CHOWDHURY and had the opportunity to ask questions and assume patient care.
[2019-03-15] MEDS ORDERED: acetaminophen 325mg/10.15ml oral unit dose solution OGT PRN (19:31)
[2019-03-15] MEDS: acetaminophen 325mg/10.15ml oral unit dose solution OGT PRN (20:15)
--- NOTE | 2019-03-15 21:18 | NUR ---
called pharmacy about an hour ago to bring up pt taurus, still waiting for medication so will be given late
[2019-03-15] MEDS: insulin regular, human vial - multi-dose SQ SCH (21:36)
[2019-03-15] MEDS: insulin glargine (Lantus) pen - multi-dose SQ SCH (21:37)
--- NOTE | 2019-03-15 22:57 | NUR ---
cardiac PTT 55, within range per protocol. continue heparin gtt at 1000 units. to be rechecked at 0400
[2019-03-16] VITALS (24 sets, daily range): BP systolic 113–183; BP diastolic 49–88
[2019-03-16] MEDS: labetalol 20mg/4ml (5mg/ml) syringe IV PRN ×2 (00:47→07:19)
[2019-03-16] MEDS: Levetiracetam-NS 500mg/100ml 100 ML IV SCH ×2 (01:43→12:58)
[2019-03-16] MEDS: insulin regular, human vial - multi-dose SQ SCH ×3 (02:14→21:33)
[2019-03-16 03:51] LABS: ABG BASE EXCESS -2.7 mmol/L (-2.0-3.0); ABG HCO3 21.7 mmol/L (22.0-26.0); ABG OXYGEN SATURATION 96.2 % (95-98); ABG PCO2 (T) 36.5 mmHg (35.0-45.0); ABG PH (T) 7.391 (7.350-7.450); ABG PO2 (T) 83.5 mmHg (83-108); ALLEN'S TEST Positive; FCOHb 0.2 % (0.5-1.5); MINUTE VOLUME 12 L/min; PATIENT TEMPERATURE 36.9; PEEP 5 cm H2O; RESPIRATORY RATE 20 b/min; RESPIRATORY RATE (OBSERVED) 22 b/min; TIDAL VOLUME 400 mL; TOTAL HEMOGLOBIN 12.8 G/dl (12.0-16.0)
[2019-03-16] MEDS: acetaminophen 325mg/10.15ml oral unit dose solution OGT PRN ×2 (04:05→15:28)
[2019-03-16 04:30] LABS: BASOPHILS % (AUTO) 0.2 % (0-1); EOSINOPHILS % (AUTO) 0.5 % (0-6); HEMATOCRIT 35.3 % (35.0-45.0); HEMOGLOBIN 11.8 g/dl (12.0-16.0); MEAN CORPUSCULAR HEMOGLOBIN 30.7 PG (27.0-31.0); MEAN CORPUSCULAR HGB CONC 33.4 g/dL (33.0-36.5); MEAN CORPUSCULAR VOLUME 91.9 FL (78-98); MEAN PLATELET VOLUME 8.2 FL (7.4-10.4); MONOCYTES # (AUTO) 0.2 X10'3 (0-0.9); MONOCYTES % (AUTO) 2.7 % (2-12); NEUTROPHILS # (AUTO) 7.8 X10'3 (1.8-7.7); NEUTROPHILS % (AUTO) 85.6 % (42-75); PLATELET COUNT 276 X10'3 (140-440); RED BLOOD COUNT 3.84 X10'6 (4.20-5.60); RED CELL DISTRIBUTION WIDTH 16.9 % (11.5-14.5); WHITE BLOOD COUNT 9.1 X10'3 (4.5-11.0)
[2019-03-16 04:37] LABS: ALANINE AMINOTRANSFERASE 26 U/L (12-78); ALBUMIN 1.9 G/DL (3.4-5.0); ALBUMIN/GLOBULIN RATIO 0.5 (1.1-1.5); ALKALINE PHOSPHATASE 103 IU/L (46-116); ANION GAP 10 (8-16); ASPARTATE AMINO TRANSFERASE 24 U/L (10-37); BILIRUBIN,TOTAL 0.3 MG/DL (0.1-1.0); BLOOD UREA NITROGEN 12 MG/DL (7-18); BUN/CREATININE RATIO 16.2 (6.6-38.0); CALCIUM 7.9 MG/DL (8.5-10.1); CHLORIDE 103 MMOL/L (99-107); CREATININE 0.74 MG/DL (0.40-0.90); GLUCOSE 223 MG/DL (70-104); MAGNESIUM 1.6 MG/DL (1.5-2.4); PHOSPHORUS 2.3 MG/DL (2.3-4.5); SODIUM 138 MMOL/L (135-145); TOTAL CARBON DIOXIDE 24.7 MMOL/L (24-32); TOTAL PROTEIN 6.1 G/DL (6.4-8.2); eGFR 76 ML/MIN
[2019-03-16] MEDS: heparin 25,000 UNIT/250ml bag 250 ML IV SCH ×2 (04:59→07:34)
[2019-03-16] MEDS: heparin 10,000 units/1 ML INJ IV PRN (05:01)
--- NOTE | 2019-03-16 05:04 | NUR ---
PTT 44. infusion changed and repeat bolus given per protocol with cosigner. notified Elif NERVE SPECIALIST EEG resulted earlier stating possible postictal or seizure activity, she ordered IV Keppra which was given.
--- NOTE | 2019-03-16 06:20 | NUR ---
Problems reprioritized. Patient report given, questions answered & plan of care reviewed with SHANELL CHOWDHURY.
[2019-03-16] MEDS: sodium phosphate inj. 15 MMOL in dextrose 5%-water 150 ML IV PRN (06:29)
[2019-03-16] MEDS: pantoprazole 40 MG vial IV SCH (07:16)
--- NOTE | 2019-03-16 07:40 | NUR ---
WRONG PATIENT Addendum: 03/16/19 at 1157 by Aicha Merida RT Amended: Links added.
[2019-03-16] MEDS: K, MAG and/or Phos replacement - Verify level? MC SCH (08:00)
[2019-03-16] MEDS: LORazepam 2 mg/ml vial IV PRN ×3 (09:35→12:59)
--- NOTE | 2019-03-16 11:56 | NUR ---
WRONG PATIENT DATA Addendum: 03/16/19 at 1157 by Aicha Merida RT Amended: Links added.
--- NOTE | 2019-03-16 12:05 | NUR ---
I have reviewed and agree with all interventions performed by [facility] Student(OSVALDO BETANCUR) Addendum: 03/16/19 at 1206 by Aicha Merida RT Amended: Links added.
[2019-03-16] MEDS ORDERED: hydrALAZINE 20mg/ml inj. IV PRN (14:55)
[2019-03-16] MEDS: midazolam 100mg in NS 100ml 100 ML IV PRN (15:29)
[2019-03-16 16:10] LABS: D-DIMER 1.43 MG/L FEU (0-0.50); PARTIAL THROMBOPLASTIN TIME 46 SECONDS (22-32)
--- NOTE | 2019-03-16 16:50 | NUR ---
Noted increasing seizure like activity - body tremor, intermittently abnormal pupillary reflex (pulsating). PRN ativan administered and versed infusion initiated per MD. BP labile SBP 130s-180s. HR labile increasing episodes of bradycardia, HR ranges from 40s and seen highest at 120s. Temperature is also labile, Tmax 37.7 - artic sun and cooling pads remain in place as a part of TTM protocol and PRN tylenol given. Hands noted to be more edematous as well as appear bruised - MD notified, PT, fibrinogen and d-dimer labs obtained, vascular studies ordered. Discoloration on hand marked in order to monitor.
--- NOTE | 2019-03-16 18:22 | NUR ---
Problems reprioritized. Patient report given, questions answered & plan of care reviewed with TRENTON Lewis.
[2019-03-16] MEDS: insulin glargine (Lantus) pen - multi-dose SQ SCH (21:30)
--- NOTE | 2019-03-16 22:47 | NUR ---
1830..Patient in room CICU 2012. I have received report from Edgar CHOWDHURY and had the opportunity to ask questions and assume patient care.
--- NOTE | 2019-03-16 22:48 | NUR ---
1999..Assessment as noted, FiO2 increased due to low sats, no other changes noted.
[2019-03-17] VITALS (15 sets, daily range): BP systolic 101–173; BP diastolic 47–78
--- NOTE | 2019-03-17 00:31 | NUR ---
0000..No changes noted.
[2019-03-17] MEDS: levetiracetam-NS 1000mg/100ml 100 ML IV SCH ×2 (01:18→11:46)
[2019-03-17 02:26] LABS: BASOPHILS % (AUTO) 0.2 % (0-1); EOSINOPHILS % (AUTO) 0.4 % (0-6); HEMATOCRIT 34.2 % (35.0-45.0); HEMOGLOBIN 11.6 g/dl (12.0-16.0); LYMPHOCYTES # (AUTO) 0.9 X10'3 (1.1-4.8); LYMPHOCYTES % (AUTO) 8.8 % (21-51); MEAN CORPUSCULAR HEMOGLOBIN 30.8 PG (27.0-31.0); MEAN CORPUSCULAR HGB CONC 33.8 g/dL (33.0-36.5); MEAN PLATELET VOLUME 8.2 FL (7.4-10.4); MONOCYTES # (AUTO) 0.3 X10'3 (0-0.9); MONOCYTES % (AUTO) 3.2 % (2-12); NEUTROPHILS # (AUTO) 8.9 X10'3 (1.8-7.7); NEUTROPHILS % (AUTO) 87.4 % (42-75); PLATELET COUNT 276 X10'3 (140-440); RED BLOOD COUNT 3.76 X10'6 (4.20-5.60); RED CELL DISTRIBUTION WIDTH 16.9 % (11.5-14.5); WHITE BLOOD COUNT 10.2 X10'3 (4.5-11.0)
[2019-03-17] MEDS: insulin regular, human vial - multi-dose SQ SCH ×2 (02:27→09:13)
[2019-03-17 02:37] LABS: ALANINE AMINOTRANSFERASE 20 U/L (12-78); ALBUMIN 1.7 G/DL (3.4-5.0); ALBUMIN/GLOBULIN RATIO 0.4 (1.1-1.5); ALKALINE PHOSPHATASE 93 IU/L (46-116); ANION GAP 9 (8-16); ASPARTATE AMINO TRANSFERASE 20 U/L (10-37); BILIRUBIN,TOTAL 0.2 MG/DL (0.1-1.0); BLOOD UREA NITROGEN 15 MG/DL (7-18); BUN/CREATININE RATIO 20.8 (6.6-38.0); CALCIUM 8.3 MG/DL (8.5-10.1); CHLORIDE 101 MMOL/L (99-107); CREATININE 0.72 MG/DL (0.40-0.90); GLUCOSE 223 MG/DL (70-104); MAGNESIUM 1.6 MG/DL (1.5-2.4); PARTIAL THROMBOPLASTIN TIME 44 SECONDS (22-32); PHOSPHORUS 2.1 MG/DL (2.3-4.5); POTASSIUM 3.3 MMOL/L (3.5-5.1); SODIUM 137 MMOL/L (135-145); TOTAL CARBON DIOXIDE 26.8 MMOL/L (24-32); TOTAL PROTEIN 6.1 G/DL (6.4-8.2); eGFR 79 ML/MIN
[2019-03-17] MEDS: heparin 25,000 UNIT/250ml bag 250 ML IV SCH (02:39)
--- NOTE | 2019-03-17 05:37 | NUR ---
0400..No changes noted.
[2019-03-17 05:46] LABS: ABG BASE EXCESS -0.1 mmol/L (-2.0-3.0); ABG HCO3 23.2 mmol/L (22.0-26.0); ABG PCO2 (T) 33.4 mmHg (35.0-45.0); ABG PO2 (T) 84.1 mmHg (83-108); ALLEN'S TEST Positive; FCOHb 0.8 % (0.5-1.5); FLOW 40 L/min; FO2Hb 96.2 % (94-100); MINUTE VOLUME 13 L/min; PATIENT TEMPERATURE 36.7; PEEP 5 cm H2O; RESPIRATORY RATE 20 b/min; RESPIRATORY RATE (OBSERVED) 23 b/min; TIDAL VOLUME 400 mL; TOTAL HEMOGLOBIN 13.2 G/dl (12.0-16.0)
--- NOTE | 2019-03-17 06:17 | NUR ---
0615..Problems reprioritized. Patient report given, questions answered & plan of care reviewed with Nayeli CHOWDHURY.
[2019-03-17] MEDS: pantoprazole 40 MG vial IV SCH (07:27)
[2019-03-17] MEDS: K, MAG and/or Phos replacement - Verify level? MC SCH (07:29)
[2019-03-17] MEDS: potassium Cl 20mEq/100mL bag 100 ML IV PRN (07:29)
[2019-03-17] MEDS: midazolam 100mg in NS 100ml 100 ML IV PRN (07:42)
[2019-03-17] MEDS ORDERED: acetaminophen 325mg tablet PO PRN (09:45)
[2019-03-17] MEDS: LORazepam 2 mg/ml vial IV PRN ×2 (10:22→14:48)
--- NOTE | 2019-03-17 10:25 | NUR ---
extubated to comfort care at 1025 per discussion with family and dr. garland.
--- NOTE | 2019-03-17 10:30 | NUR ---
Pt extubated. Family at bedside.
[2019-03-17] MEDS: fentaNYL/PF 50MCG/1 ML 2ML syringe IV PRN ×2 (11:23→14:47)
[2019-03-17] MEDS ORDERED: morphine 10mg/ml inj. IV PRN (16:40)
--- NOTE | 2019-03-17 17:18 | NUR ---
patient transferred to room 4008 and remains on comfort care. Family notified of transfer. They would like the patient to go [facility] the time comes and they advised me that they already set up transportation and services.
--- NOTE | 2019-03-17 18:30 | NUR ---
Received report from Dee CHOWDHURY. patient is currently resting on her left side with pillows for support to JAMAL.
--- NOTE | 2019-03-17 23:28 | NUR ---
Have been suctioning with Yankauer frequently for secretions however not able to get all out. New orders for NT suctioning and scopolamine patch obtained.
[2019-03-17] MEDS ORDERED: scopolamine 1.5mg patch.TD72 TD SCH (23:30)
--- NOTE | 2019-03-18 00:55 | NUR ---
Checked in on patient at 0035. Patient found . No Heart sounds, VS, and EKG showed asystole. Addendum: 03/18/19 at 0102 by Alexia Lewis RN okayed to pronounce and family member Lula Quintanilla informed as previousy discussed by family.
--- NOTE | 2019-03-18 02:37 | NUR ---
Kel martinez here to collect patient. Addendum: 03/18/19 at 0312 by Alexia Lewis RN Patient had in a partial bridge in mouth and bed socks on.
== END 2019-03-18 02:35 | disposition expired | DRG 207 ==
LOC: EDBD → ER 21:03 → ED HOLD 23:21 → MERGE 23:21 → EDBEDREQ 23:23 → CMPBEDREQ 03-13 00:33 → CICU 2S 03-13 00:34 → ORTHO 4S 03-17 17:10
PROVIDERS: ADMIT Internal Medicine Critical Care Medicine
PROC: 5A1955Z Respiratory Ventilation, Greater than 96 Consecutive Hours (ICD-10-PCS; principal; 2019-03-12)
PROC: 0BH17EZ Insertion of Endotracheal Airway into Trachea, Via Natural or Artificial Opening (ICD-10-PCS; 2019-03-12)
PROC: 02HV33Z Insertion of Infusion Device into Superior Vena Cava, Percutaneous Approach (ICD-10-PCS; 2019-03-12)
PROC: B548ZZA Ultrasonography of Superior Vena Cava, Guidance (ICD-10-PCS; 2019-03-12)
PROC: 4A10X4Z Monitoring of Central Nervous Electrical Activity, External Approach (ICD-10-PCS; 2019-03-15)
DX: J96.01 Acute respiratory failure with hypoxia (principal); E87.2 Acidosis; G93.1 Anoxic brain damage, not elsewhere classified; I48.92 Unspecified atrial flutter; I47.2 Ventricular tachycardia; I46.9 Cardiac arrest, cause unspecified; I49.01 Ventricular fibrillation; I48.91 Unspecified atrial fibrillation; E11.9 Type 2 diabetes mellitus without complications; R68.0 Hypothermia, not associated with low environmental temperature; I51.9 Heart disease, unspecified; F03.90 Unspecified dementia, unspecified severity, without behavioral disturbance, psychotic disturbance, mood disturbance, and anxiety; E78.5 Hyperlipidemia, unspecified; G14 Postpolio syndrome; R94.01 Abnormal electroencephalogram [EEG]; I44.1 Atrioventricular block, second degree; Z51.5 Encounter for palliative care; Z96.641 Presence of right artificial hip joint; Z66 Do not resuscitate; I25.10 Atherosclerotic heart disease of native coronary artery without angina pectoris; Z87.891 Personal history of nicotine dependence; I25.2 Old myocardial infarction; Z90.710 Acquired absence of both cervix and uterus; Z88.8 Allergy status to other drugs, medicaments and biological substances; Z79.899 Other long term (current) drug therapy; Z90.49 Acquired absence of other specified parts of digestive tract
CPT/HCPCS: 31500; 36415; 36556; 36600; 70450; 71045; 80048; 80053; 81001; 82550; 82553; 82570; 82803; 82948; 83036; 83605; 83735; 83880; 84100; 84134; 84145; 84156; 84300; 84439; 84443; 84484; 84540; 85018; 85025; 85379; 85384; 85610; 85730; 87040; 87070; 87081; 93005; 93306; 93930; 93970; 94002; 94003; 94668; 94760; 95816; 96365; 99291; C9113; G0378; J0360; J0461; J0696; J1644; J1815; J1953; J2060; J2250; J3010; J3475; J3480; J3490; J7050; J7060